=== PATIENT | female | born 2000 | race African-American/Black ===

== ENCOUNTER 2021-04-10 09:27 | Observation (INO) ==
[2021-04-10 10:27] LABS: Basophils % 0.2 % (0.0-0.8); Eosinophils % 0.3 % (0.00-10.9); Hematocrit 19.9 VOL% (35.7-47.0); Immature Granulocytes % 1.5 %; Immature Granulocytes Absolute 0.19 #; Lymphocytes # 1.3 10*3/uL (1.4-4.0); Lymphocytes % 10.3 % (21.3-54.2); Mean Corpuscular HGB Conc 27.6 GM/DL (32-36); Mean Corpuscular Volume 69.6 FL (87-102); Mean Platelet Volume 9.4 FL (9.6-12.0); Monocytes % 7.6 % (1.7-12.7); NRBC # 0.02 10*3/uL; Neutrophils % 80.1 % (38.7-73.9); Platelet Count 533 T/CUMM (130-400); Red Blood Count 2.86 MC/CUMM (3.8-5.5); Red Cell Distribution Width 16.6 % (9.3-17.3); White Blood Count 12.8 T/CUMM (4-12)
[2021-04-10 10:30] LABS: Bilirubin,Urine Negative (Negative); Blood, Urine Large mg/dL (Negative); Glucose,Urine (UA) Negative (Negative); Ketones,Urine Negative (Negative); Mucus,Urine Many /LPF (Occasional); Nitrite,Urine Negative (Negative); Protein,Urine 100 MG/DL; RBC,Urine 737 /HPF (0-4); Squamous Epithelial Cell,Urine Moderate /HPF (0-10); Urine Appearance CLOUDY (Clear); Urine Color Amber (Yellow); Urine Specific Gravity 1.026 (1.001-1.035)
[2021-04-10 10:33] LABS: Hemoglobin 5.5 GM/DL (12.0-16.0)
[2021-04-10 10:48] LABS: Hypochromasia 2+; Microcytosis 1+; Platelet Estimate Increased
[2021-04-10 10:58] LABS: Albumin 3.3 G/DL (3.4-5.0); Bilirubin,Total 0.6 MG/DL (0.20-1.00); Calcium 9.4 MG/DL (8.5-10.1); Osmolality,Calculated 267.1 MOS/KG (273-304); Potassium 3.1 MMOL/L (3.5-5.1); Total Protein 8.2 G/DL (6.4-8.2)
[2021-04-10] MEDS ORDERED: cefTRIAXone 1,000 MG in SODIUM CHLORIDE 0.9% 100 ML IV STA (11:05)
[2021-04-10] MEDS ORDERED: SODIUM CHLORIDE 0.9% 1,000 ML IV STA (11:06)
[2021-04-10] MEDS ORDERED: cefTRIAXone 1,000 MG VIAL ONE (11:10)
[2021-04-10] MEDS ORDERED: SODIUM CHLORIDE 0.9% 1,000 ML IV PRN ×2 (11:33→18:09)
[2021-04-10] MEDS ORDERED: ACETAMINOPHEN 325 MG TABLET PO PRN (13:09)
[2021-04-10] MEDS ORDERED: BISACODYL 10 MG SUPP RECTAL PRN (13:09)
[2021-04-10] MEDS ORDERED: IBUPROFEN 800 MG TABLET PO PRN (13:09)
[2021-04-10] MEDS ORDERED: ONDANSETRON 4 MG/2 ML VIAL IV PRN (13:09)
[2021-04-10] MEDS ORDERED: MAGNESIUM HYDROXIDE SUSP 30 ML UDCUP PO PRN (13:09)
[2021-04-10] MEDS: POTASSIUM CHLORIDE 20 MEQ TABLET PO PRN ×2 (14:15→18:18)
[2021-04-10] MEDS: POTASSIUM BICARB EFFERVESCENT 20 MEQ TAB.EFF PO PRN ×3 (16:17→20:02)
[2021-04-10] MEDS: CIPROFLOXACIN INJ 400 MG/200 ML PREMIX IV SCH (17:58)
[2021-04-10] MEDS: DOCUSATE SODIUM 100 MG CAPSULE PO SCH (20:00)
[2021-04-10] MEDS ORDERED: diphenhydrAMINE CAP 25 MG CAPSULE PO PRN (21:06)
[2021-04-10] MEDS ORDERED: diphenhydrAMINE CAP 25 MG CAPSULE ONE (21:08)
[2021-04-11 05:06] LABS: Basophils % 0.3 % (0.0-0.8); Eosinophils # 0.2 10*3/uL (0.0-0.87); Eosinophils % 1.8 % (0.00-10.9); Immature Granulocytes % 1.8 %; Immature Granulocytes Absolute 0.17 #; Mean Corpuscular Volume 75.5 FL (87-102)
[2021-04-11 05:14] LABS: Lymphocytes # 1.9 10*3/uL (1.4-4.0); Mean Corpuscular HGB Conc 31.1 GM/DL (32-36); Mean Platelet Volume 9.2 FL (9.6-12.0); Monocytes % 9.4 % (1.7-12.7); NRBC # 0.02 10*3/uL; Neutrophils % 65.7 % (38.7-73.9); Platelet Count 432 T/CUMM (130-400); White Blood Count 9.2 T/CUMM (4-12)
[2021-04-11 05:16] LABS: Hemoglobin 8.7 GM/DL (12.0-16.0); Red Blood Count 3.71 MC/CUMM (3.8-5.5)
[2021-04-11] MEDS: CIPROFLOXACIN INJ 400 MG/200 ML PREMIX IV SCH (05:25)
[2021-04-11 05:29] LABS: Hypochromasia 1+; Microcytosis 1+; Platelet Estimate Adequate
[2021-04-11] MEDS: LACTATED RINGERS 1,000 ML IV SCH ×2 (06:58)
[2021-04-11] MEDS ORDERED: DEXAMETHASONE 4 MG/1 ML VIAL ONE ×2 (08:44→10:29)
[2021-04-11] MEDS ORDERED: ROCURONIUM 50 MG/5 ML VIAL IV ONE (08:44)
[2021-04-11] MEDS ORDERED: KETOROLAC 30 MG/1 ML VIAL ONE (08:44)
[2021-04-11] MEDS ORDERED: LIDOCAINE 2% 5 ML VIAL ONE (08:44)
[2021-04-11] MEDS ORDERED: ACETAMINOPHEN INJ 1,000 MG/100 ML VIAL IV ONE (08:44)
[2021-04-11] MEDS ORDERED: fentaNYL 100 MCG/2 ML VIAL ONE (08:44)
[2021-04-11] MEDS ORDERED: ONDANSETRON 4 MG/2 ML VIAL ONE (08:44)
[2021-04-11] MEDS ORDERED: MIDAZOLAM 2 MG/2 ML VIAL ONE (08:44)
[2021-04-11] MEDS ORDERED: SEVOFLURANE 1 UNIT/15 MINUTE INH ONE ×3 (08:44→10:52)
[2021-04-11] MEDS ORDERED: propofoL 200 MG/20 ML VIAL IV ONE (08:44)
[2021-04-11] MEDS ORDERED: SUCCINYLCHOLINE 200 MG/10 ML VIAL ONE (08:50)
[2021-04-11] MEDS ORDERED: BUPIVACAINE MPF 0.25% 30 ML VIAL ONE (09:47)
[2021-04-11] MEDS ORDERED: LIDOCAINE 1%/EPI INJ 20 ML VIAL ONE (09:47)
[2021-04-11] MEDS ORDERED: TISSUE ADHESIVE 1 EACH APPLICATOR TOP ONE (09:47)
[2021-04-11] MEDS ORDERED: LACTATED RINGERS 1,000 ML IV SCH (10:00)
[2021-04-11] MEDS ORDERED: PHENYLEPHRINE 1 MG/10 ML SYRINGE IV ONE (10:26)
[2021-04-11] MEDS ORDERED: GLYCOPYRROLATE 0.4 MG/2 ML VIAL ONE (10:29)
[2021-04-11] MEDS ORDERED: NEOSTIGMINE 10 MG/10 ML VIAL ONE (10:29)
[2021-04-11 11:04] LABS: INR 1.1; PT Patient Result 11.9 SECS (10.5-12.0)
[2021-04-11] MEDS: DOCUSATE SODIUM 100 MG CAPSULE PO SCH (11:15)
[2021-04-11] MEDS ORDERED: ONDANSETRON 4 MG/2 ML VIAL IV PRN (11:17)
[2021-04-11] MEDS: HYDROmorphone 2 MG/1 ML VIAL IV PRN ×4 (11:21→11:36)
[2021-04-11] MEDS ORDERED: oxyCODONE/ACETAMINOPHEN 5-325 MG TABLET PO PRN (14:00)
[2021-04-11 15:50] VITALS: BP 111/72
== END 2021-04-11 17:35 | disposition home or self-care (01) ==
LOC: N.ED 09:27 → N.EDINP 09:27 → N.OB 13:00
PROVIDERS: ADMIT Obstetrics & Gynecology; ATTEND Obstetrics & Gynecology